=== PATIENT | female | born 1970 | race African-American/Black ===

== ENCOUNTER 2016-06-27 11:56 | Emergency (ER) | payer OTHER ==
--- NOTE | 2016-06-27 13:32 | ER Document Report ---
ED Medical Screen (RME) - General Chief Complaint: Vaginal Bleeding Stated Complaint: ABDOMINAL PAIN Mode of Arrival: Ambulatory Information source: Patient Notes: Patient is complaining of vaginal bleeding with clots that constant, every day since prior to . She endorses abdominal cramping to her lower abdomen, constant but today it became severe and shooting. Prior to this, she had normal menstrual cycles monthly for approximately 3 days. Endorses nausea, lightheadedness but denies fever, chills, dizziness, vomiting, diarrhea, vaginal discharge. This has happened to her before that required emergency surgery due to hemorrhage - she believes it was a D&C - this occurred 15 years ago. TRAVEL OUTSIDE OF THE [place] IN LAST 30 DAYS: No - Related Data Allergies/Adverse Reactions: doxycycline [Doxycycline] Allergy (Verified 07/27/15 14:01) erythromycin base [Erythromycin Base] Allergy (Verified 07/27/15 14:01) Past Medical History - General Last Menstrual Period: last normal period, persistant bleeeiing since - Social History Frequency of alcohol use: Social Drug Abuse: None - Past Medical History Cardiac Medical History: Reports: Hx Hypertension GI Medical History: Reports: Hx Gastroesophageal Reflux Disease, Hx Ulcer Past Surgical History: Reports: Hx Dilation and Curettage, Hx Gynecologic Surgery - Immunizations Hx Diphtheria, Pertussis, Tetanus Vaccination: Yes Review of Systems - Review of Systems Constitutional: See HPI Gastrointestinal: See HPI Female Genitourinary: See HPI Physical Exam - Vital signs Vitals: Temp Pulse Resp BP Pulse Ox 98.1 F 69 18 138/83 H 100 06/27/16 12:14 06/27/16 12:14 06/27/16 12:14 06/27/16 12:14 06/27/16 12:14 - Notes Notes: General: Appears uncomfortable, no respiratory distress. ENT: Moist mucus membranes, no pallor noted. Course - Re-evaluation Re-evalutation: 06/27/16 13:32 Patient seen and examined. No pallor noted. VSS. Ordered lab work and urinalysis. - Vital Signs Vital signs: Temp Pulse Resp BP Pulse Ox 98.1 F 69 18 138/83 H 100 06/27/16 12:14 06/27/16 12:14 06/27/16 12:14 06/27/16 12:14 06/27/16 12:14
[2016-06-27 14:44] LABS: ABSOLUTE EOSINOPHILS # (AUTO) 0.2 10^3/uL (0.0-0.6); ABSOLUTE LYMPHOCYTES (AUTO) 2.8 10^3/uL (0.5-4.7); ABSOLUTE MONOCYTES (AUTO) 0.5 10^3/uL (0.1-1.4); BASOPHILS % (AUTO) 0.5 % (0-2); EOSINOPHILS % (AUTO) 2.7 % (0-6); HEMOGLOBIN 13.6 g/dL (12.0-15.5); HGB HCT DIFFERENCE 0.8; LYMPHOCYTES % (AUTO) 42.7 % (13-45); MEAN CORPUSCULAR HEMOGLOBIN 29.3 pg (27.0-33.4); MEAN CORPUSCULAR HGB CONC 33.9 g/dL (32.0-36.0); MEAN CORPUSCULAR VOLUME 86 fl (80-97); MONOCYTES % (AUTO) 7.3 % (3-13); RED BLOOD COUNT 4.64 10^6/uL (3.72-5.28); RED CELL DISTRIBUTION WIDTH 14.4 % (11.5-14.0); SEGMENTED NEUTROPHILS % (AUTO) 46.8 % (42-78); WHITE BLOOD COUNT 6.5 10^3/uL (4.0-10.5)
[2016-06-27 15:00] LABS: ANION GAP 12 (5-19); BLOOD UREA NITROGEN 17 mg/dL (7-20); CALCIUM 9.5 mg/dL (8.4-10.2); CARBON DIOXIDE 24 mmol/L (22-30); CHLORIDE 106 mmol/L (98-107); GLUCOSE 89 mg/dL (75-110); POTASSIUM 5.1 mmol/L (3.6-5.0); SODIUM 141.6 mmol/L (137-145)
[2016-06-27 15:12] LABS: APPEARANCE,URINE CLEAR; BILIRUBIN,URINE NEGATIVE (NEGATIVE); GLUCOSE, URINE NEGATIVE (NEGATIVE); KETONES,URINE NEGATIVE (NEGATIVE); LEUKOCYTE ESTERASE,URINE NEGATIVE (NEGATIVE); NITRITE,URINE NEGATIVE (NEGATIVE); PROTEIN,URINE NEGATIVE (NEGATIVE); URINE SPECIFIC GRAVITY 1.028; UROBILINOGEN,URINE NEGATIVE mg/dL (<2.0)
--- NOTE | 2016-06-27 17:21 | ER Document Report ---
ED GI/ - General Chief Complaint: Vaginal Bleeding Stated Complaint: ABDOMINAL PAIN Mode of Arrival: Ambulatory Information source: Patient Notes: 45 y/o F presents to ED c/o persistent vaginal bleeding and pelvic cramping for approximately the last month. Pt reports LMP was around 05/20/16 and has not stopped bleeding since. States intensity of bleeding varies but is usually slightly less than normal menstrual flow. Reports associated intermittent mid pelvic cramping that radiates bilaterally. was seen in this ED on 06/17 and given prescription for provera but did not fill it and has not followed up with [facility]. Denies fever, vaginal discharge, n/v, dysuria, flank pain, chest pain, or sob. TRAVEL OUTSIDE OF THE [place] 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 Menstrual period history: Irregular Sexual history: denies: New partner, Unprotected intercourse, STD exposure Similar symptoms previously: Yes Recently seen / treated by doctor: Yes - Related Data Allergies/Adverse Reactions: doxycycline [Doxycycline] Allergy (Verified 07/27/15 14:01) erythromycin base [Erythromycin Base] Allergy (Verified 07/27/15 14:01) Past Medical History - General Information source: Patient Last Menstrual Period: thanksgiving last normal period, persistant bleeeiing since - Social History Smoking Status: Never Smoker Frequency of alcohol use: Social Drug Abuse: None Lives with: Family Family History: Reviewed & Not Pertinent Patient has suicidal ideation: No Patient has homicidal ideation: No - Past Medical History Cardiac Medical History: Reports: Hx Hypertension GI Medical History: Reports: Hx Gastroesophageal Reflux Disease, Hx Ulcer Past Surgical History: Reports: Hx Dilation and Curettage, Hx Gynecologic Surgery - Immunizations Hx Diphtheria, Pertussis, Tetanus Vaccination: Yes Hx Pneumococcal Vaccination: 06/26/00 Review of Systems - Review of Systems Constitutional: No symptoms reported EENT: No symptoms reported Cardiovascular: No symptoms reported Respiratory: No symptoms reported Gastrointestinal: No symptoms reported Genitourinary: No symptoms reported Female Genitourinary: See HPI Musculoskeletal: No symptoms reported Skin: No symptoms reported Hematologic/Lymphatic: No symptoms reported Neurological/Psychological: No symptoms reported -: Yes All other systems reviewed and negative Physical Exam - Vital signs Vitals: Temp Pulse Resp BP Pulse Ox 98.1 F 69 18 138/83 H 100 06/27/16 12:14 06/27/16 12:14 06/27/16 12:14 06/27/16 12:14 06/27/16 12:14 Interpretation: Normal - General General appearance: Appears well, Alert In distress: None - HEENT Head: Normocephalic, Atraumatic Eyes: Normal Pupils: PERRL - Respiratory Respiratory status: No respiratory distress Chest status: Nontender Breath sounds: Normal Chest palpation: Normal - Cardiovascular Rhythm: Regular Heart sounds: Normal auscultation Murmur: No Pulses: Normal: Radial Normal capillary refill: Yes - Abdominal Inspection: Normal Distension: No distension Bowel sounds: Normal Tenderness: Nontender. No: Tender, McBurney's point, Corrales's sign, Guarding, Rebound, Other Organomegaly: No organomegaly - Genitourinary Notes: pt declined pelvic exam - Back Back: Normal, Nontender - Extremities General upper extremity: Normal inspection, Nontender, Normal color, Normal ROM , Normal strength, Normal temperature. No: Tender, Edema General lower extremity: Normal inspection, Nontender, Normal color, Normal ROM , Normal strength, Normal temperature, Normal weight bearing. No: Tender, Edema - Neurological Neuro grossly intact: Yes Cognition: Normal Orientation: AAOx4 [place] Coma Scale Eye Opening: Spontaneous [place] Coma Scale Verbal: Oriented O[place] Coma Scale Motor: Obeys Commands [place] Coma Scale Total: 15 Speech: Normal Motor strength normal: LUE, RUE, LLE, RLE - Psychological Associated symptoms: Normal affect, Normal mood - Skin Skin Temperature: Warm Skin Moisture: Dry Skin Color: Normal Course - Re-evaluation Re-evalutation: 06/27/16 18:00 Pt hemodynamically stable, in no distress, afebrile. Labs unremarkable, left ovarian cyst, and nabothian cysts on ultrasound. Will re-write for previous Provera prescription as patient states misplaced original one from previous ED visit. Pt appears stable for discharge agrees with home care, follow-up, and ED return precautions. - Vital Signs Vital signs: Temp Pulse Resp BP Pulse Ox 98.4 F 65 18 125/82 98 06/27/16 17:41 06/27/16 17:41 06/27/16 12:14 06/27/16 17:41 06/27/16 17:41 - Laboratory Result Diagrams: 06/27/16 14:30 06/27/16 14:30 Laboratory results interpreted by me: 06/27/16 06/27/16 06/27/16 14:30 14:30 14:30 RDW 14.4 H Potassium 5.1 H Est GFR (Non-Af Amer) 59 L Urine Ascorbic Acid 40 H - Diagnostic Test Radiology reviewed: Image reviewed, Reports reviewed Discharge - Discharge Clinical Impression: Pelvic pain, Vaginal bleeding Ovarian cyst Qualifiers: Laterality: right Qualified Code(s): N83.201 - Unspecified ovarian cyst, right side Condition: Stable Disposition: HOME, SELF-CARE Instructions: Anti-Inflammatory Medication ([facility]), Oral Narcotic Medication ([facility] ), Ovarian Cyst ([facility]), Pelvic Pain ([facility]), Provera ([facility]), Vaginal Bleeding ([facility]) , Use of Sjms-Ocl-Uizhlas Ibuprofen ([facility]) Additional Instructions: Follow-up with [facility] tomorrow as discussed. Return to the Emergency Department for any worsening symptoms or concerns. Prescriptions: Hydrocodone/Acetaminophen [[place] 5-325 mg Tablet] 1 tab PO Q6H PRN #8 tablet PRN Reason: Medroxyprogesterone Acet [Provera 10 mg Tablet] 10 mg PO DAILY #7 tablet Forms: Elevated Blood Pressure Referrals: [facility] [Provider Group] - Follow up tomorrow
[2016-06-27 18:02] VITALS: BP 125/82
== END 2016-06-27 18:02 | disposition home or self-care (01) ==
LOC: ER 11:56
DX: N83.201 Unspecified ovarian cyst, right side (principal); N93.8 Other specified abnormal uterine and vaginal bleeding; R10.2 Pelvic and perineal pain; I10 Essential (primary) hypertension; K21.9 Gastro-esophageal reflux disease without esophagitis; Z88.3 Allergy status to other anti-infective agents
CPT/HCPCS: 36415; 51701; 76830; 80048; 81001; 81025; 85025; 85610; 93976; 99284

== ENCOUNTER 2017-03-14 13:54 | Emergency (ER) | payer SELFPAY ==
[2017-03-14 14:16] VITALS: BP 134/81
--- NOTE | 2017-03-14 15:22 | ER Document Report ---
HPI - HPI Patient complains to provider of: low back pain Onset: Other Onset/Duration: Sudden Quality of pain: Achy Severity: Moderate Pain Level: 4 Context: Patient states she stepped out of her car and did not realize she was on a small hill, stepped on an unlevel surface injuring her lower back. Patient states pain radiates to her left thigh. Patient denies history of lower back problems, and denies loss of control of bowels or bladder. Associated Symptoms: None Exacerbated by: Movement Relieved by: Remaining still Similar symptoms previously: No Recently seen / treated by doctor: No - ROS ROS below otherwise negative: Yes Systems Reviewed and Negative: Yes All other systems reviewed and negative - CONSTITUTIONAL Constitutional: DENIES: Fever - EENT EENT: DENIES: Congestion - NEURO Neurology: DENIES: Headache - CARDIOVASCULAR Cardiovascular: DENIES: Chest pain - RESPIRATORY Respiratory: DENIES: Trouble Breathing - GASTROINTESTINAL Gastrointestinal: DENIES: Abdominal Pain - REPRODUCTIVE Reproductive: DENIES: : - MUSCULOSKELETAL Musculoskeletal: REPORTS: Back Pain - DERM Skin Color: Normal Skin Problems: None Past Medical History - General Information source: Patient - Social History Smoking Status: Never Smoker Frequency of alcohol use: Occasional Drug Abuse: None Lives with: Family Family History: Reviewed & Not Pertinent Patient has suicidal ideation: No Patient has homicidal ideation: No - Past Medical History Cardiac Medical History: Reports: Hx Hypertension GI Medical History: Reports: Hx Gastroesophageal Reflux Disease, Hx Ulcer Past Surgical History: Reports: Hx Dilation and Curettage, Hx Gynecologic Surgery - Immunizations Hx Diphtheria, Pertussis, Tetanus Vaccination: Yes Hx Pneumococcal Vaccination: 06/26/00 Vertical Provider Document - CONSTITUTIONAL Agree With Documented VS: Yes General Appearance: WD/WN, No Apparent Distress - INFECTION CONTROL TRAVEL OUTSIDE OF THE [place] IN LAST 30 DAYS: No - HEENT HEENT: Atraumatic, Normocephalic - RESPIRATORY Respiratory: Breath Sounds Normal, No Respiratory Distress O2 Sat by Pulse Oximetry: 98 - CARDIOVASCULAR Cardiovascular: Regular Rate, Regular Rhythm - GI/ABDOMEN Gastrointestinal: Abdomen Soft, Abdomen Non-Tender - BACK Notes: Minimal tenderness to L-spine, increased tenderness to left paraspinal lumbar muscles and over left buttock. No pain with right leg raise, discomfort produced with left straight leg raise. No saddle anesthesia. - MUSCULOSKELETAL/EXTREMETIES Musculoskeletal/Extremeties: MAEW - NEURO Level of Consciousness: Awake, Alert, Appropriate - DERM Integumentary: Warm, Dry, No Rash Course - Vital Signs Vital signs: Temp Pulse Resp BP Pulse Ox 98.3 F 71 16 134/81 H 98 03/14/17 14:12 03/14/17 14:12 03/14/17 14:12 03/14/17 14:12 03/14/17 14:12 Discharge - Discharge Clinical Impression: Low back pain with left-sided sciatica Qualifiers: Chronicity: acute Back pain laterality: left Qualified Code(s): M54.42 - Lumbago with sciatica, left side Condition: Good Disposition: HOME, SELF-CARE Instructions: Ice Packs ([facility]), Low Back Pain ([facility]), Warm Packs ([facility]) Additional Instructions: Take medications as prescribed Heat or ice packs to your back 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 Follow-up with your doctor if not better in 1 week Return if symptoms worsen, and as needed Prescriptions: Cyclobenzaprine HCl [Flexeril 10 mg Tablet] 10 mg PO TIDP PRN #15 tab PRN Reason: Ibuprofen 800 mg PO PRN PRN #15 tablet PRN Reason: Prednisone [Deltasone 10 mg Tablet] 10 mg PO ASDIR PRN #21 tablet PRN Reason: Forms: Return to Work
== END 2017-03-14 15:32 | disposition home or self-care (01) ==
LOC: ER 13:54
DX: M54.42 Lumbago with sciatica, left side (principal); K21.9 Gastro-esophageal reflux disease without esophagitis; I10 Essential (primary) hypertension
CPT/HCPCS: 99283

== ENCOUNTER 2018-01-03 13:59 | Emergency (ER) | payer OTHER ==
[2018-01-03] MEDS ORDERED: NAPROXEN 250 MG TABLET PO ONE (14:42)
[2018-01-03] MEDS ORDERED: HYDROCODONE/ACETAMINOPHEN 5-325 MG TABLET PO ONE (14:42)
--- NOTE | 2018-01-03 14:47 | ER Document Report ---
ED Medical Screen (RME) - General Chief Complaint: Abdominal Pain Stated Complaint: SICK Time Seen by Provider: 01/03/18 14:35 Notes: The patient is a 47-year-old female, past medical history TURP, presents with increasing vaginal bleeding over the past day and lightheadedness. 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 She went to [facility] urgent [facility] and was sent to the ER for further evaluation. She said Provera resolve this in the past. PE: RRR. Tenderness over suprapubic region. I have greeted and performed a rapid initial assessment of this patient. A comprehensive ED assessment and evaluation of the patient, analysis of test results and completion of the medical decision making process will be conducted by additional ED providers. TRAVEL OUTSIDE OF THE [place] IN LAST 30 DAYS: No - Related Data Allergies/Adverse Reactions: doxycycline [Doxycycline] Allergy (Verified 01/03/18 14:35) erythromycin base [Erythromycin Base] Allergy (Verified 01/03/18 14:35) Past Medical History - Social History Chew tobacco use (# tins/day): No Frequency of alcohol use: Rare Drug Abuse: None - Past Medical History Cardiac Medical History: Reports: Hx Hypertension Renal/ Medical History: Denies: Hx Peritoneal Dialysis GI Medical History: Reports: Hx Gastroesophageal Reflux Disease, Hx Ulcer Past Surgical History: Reports: Hx Dilation and Curettage, Hx Gynecologic Surgery - Immunizations Hx Diphtheria, Pertussis, Tetanus Vaccination: Yes Physical Exam - Vital signs Vitals: Temp Pulse Resp BP Pulse Ox 97.9 F 69 20 128/76 H 98 01/03/18 14:10 01/03/18 14:10 01/03/18 14:10 01/03/18 14:10 01/03/18 14:10 Course - Vital Signs Vital signs: Temp Pulse Resp BP Pulse Ox 97.9 F 69 20 128/76 H 98 01/03/18 14:10 01/03/18 14:10 01/03/18 14:10 01/03/18 14:10 01/03/18 14:10
[2018-01-03 15:27] LABS: ABSOLUTE EOSINOPHILS # (AUTO) 0.2 10^3/uL (0.0-0.6); ABSOLUTE MONOCYTES (AUTO) 0.5 10^3/uL (0.1-1.4); ABSOLUTE NEUT (AUTO) 4.5 10^3/uL (1.7-8.2); BASOPHILS % (AUTO) 0.4 % (0-2); EOSINOPHILS % (AUTO) 2.1 % (0-6); HEMOGLOBIN 14.4 g/dL (12.0-15.5); LYMPHOCYTES % (AUTO) 36.6 % (13-45); MEAN CORPUSCULAR HEMOGLOBIN 28.9 pg (27.0-33.4); MEAN CORPUSCULAR HGB CONC 33.4 g/dL (32.0-36.0); MEAN CORPUSCULAR VOLUME 87 fl (80-97); PLATELET COUNT 353 10^3/uL (150-450); RED BLOOD COUNT 4.96 10^6/uL (3.72-5.28); RED CELL DISTRIBUTION WIDTH 14.6 % (11.5-14.0); SEGMENTED NEUTROPHILS % (AUTO) 54.9 % (42-78); TOTAL CELLS COUNTED % (AUTO) 100 %; WHITE BLOOD COUNT 8.2 10^3/uL (4.0-10.5)
[2018-01-03 15:29] LABS: APPEARANCE,URINE CLEAR; BILIRUBIN,URINE NEGATIVE (NEGATIVE); COLOR,URINE YELLOW; GLUCOSE, URINE NEGATIVE (NEGATIVE); KETONES,URINE NEGATIVE (NEGATIVE); LEUKOCYTE ESTERASE,URINE NEGATIVE (NEGATIVE); NITRITE,URINE NEGATIVE (NEGATIVE); PROTEIN,URINE NEGATIVE (NEGATIVE); URINE SPECIFIC GRAVITY 1.019
[2018-01-03] MEDS ORDERED: MORPHINE SULFATE 10 MG/ML INJ IV ONE (15:54)
--- NOTE | 2018-01-03 15:55 | ER Document Report ---
ED GI/ - General Chief Complaint: Abdominal Pain Stated Complaint: SICK Time Seen by Provider: 01/03/18 14:35 Mode of Arrival: Ambulatory Information source: Patient Notes: Patient is a 47-year-old female still with all female organs who presents to the ER today for very heavy menstrual cycle. Patient states it began 4 days ago and that her menstrual cycles usually only last 3 days, she states that has been very heavy and worsened last night with the passage of one large clot and some pelvic pain that is "much worse than I have ever had before." Patient has a history of an ovarian cyst once before. Patient was sent here by [facility] urgent care. She denies any dizziness or lightheadedness. She denies that her abdominal pain is worse on one side or the other, she denies any dysuria, vaginal discharge, fevers or chills. TRAVEL OUTSIDE OF THE [place] IN LAST 30 DAYS: No - Related Data Allergies/Adverse Reactions: doxycycline [Doxycycline] Allergy (Verified 01/03/18 14:35) erythromycin base [Erythromycin Base] Allergy (Verified 01/03/18 14:35) Past Medical History - General Information source: Patient - Social History Smoking Status: Never Smoker Chew tobacco use (# tins/day): No Frequency of alcohol use: Rare Drug Abuse: None Family History: Reviewed & Not Pertinent Patient has suicidal ideation: No Patient has homicidal ideation: No - Past Medical History Cardiac Medical History: Reports: Hx Hypertension Renal/ Medical History: Denies: Hx Peritoneal Dialysis GI Medical History: Reports: Hx Gastroesophageal Reflux Disease, Hx Ulcer Past Surgical History: Reports: Hx Dilation and Curettage, Hx Gynecologic Surgery - Immunizations Hx Diphtheria, Pertussis, Tetanus Vaccination: Yes Hx Pneumococcal Vaccination: 06/26/00 Review of Systems - Review of Systems Constitutional: No symptoms reported EENT: No symptoms reported Cardiovascular: No symptoms reported Respiratory: No symptoms reported Gastrointestinal: No symptoms reported Genitourinary: No symptoms reported Female Genitourinary: See HPI Musculoskeletal: No symptoms reported Skin: No symptoms reported Hematologic/Lymphatic: No symptoms reported Neurological/Psychological: No symptoms reported Physical Exam - Vital signs Vitals: Temp Pulse Resp BP Pulse Ox 97.9 F 69 20 128/76 H 98 01/03/18 14:10 01/03/18 14:10 01/03/18 14:10 01/03/18 14:10 01/03/18 14:10 - Notes Notes: PHYSICAL EXAMINATION: GENERAL: Well-appearing and in no acute distress. HEAD: Atraumatic, normocephalic. EYES: Pupils equal round and reactive to light, extraocular movements intact, sclera anicteric, conjunctiva are normal. NECK: Normal range of motion, supple without lymphadenopathy LUNGS: CTAB and equal. No wheezes rales or rhonchi. HEART: Regular rate and rhythm without murmurs ABDOMEN: Soft, suprapubic tenderness. No guarding, no rebound BACK: no vertebral tenderness, normal ROM Pelvic: Small amount of bright red blood in vaginal canal, no clots, normal tenderness to exam, no discharge, no adnexal tenderness, no cervical motion tenderness GI/: no CVA tenderness EXTREMITIES: Normal range of motion, no pitting edema. No cyanosis. NEUROLOGICAL: Cranial nerves grossly intact. Normal sensory/motor exams. PSYCH: Normal mood, normal affect. SKIN: Warm, Dry, normal turgor, no rashes or lesions noted Course - Re-evaluation Re-evalutation: 01/03/18 16:10 negative here today, ultrasound of the pelvis reveals no acute pathology, no cyst, evidence of fibroids or endometriosis, other abnormality. Patient's hemoglobin is normal today. Patient is not symptomatic from heavy bleeding. Patient states bleeding has "calmed down quite a bit" since being here in the emergency department. Pelvic exam was unremarkable without signs of uncontrollable hemorrhage. Patient stable for discharge. 01/04/18 08:11 - Vital Signs Vital signs: Temp Pulse Resp BP Pulse Ox 98.2 F 68 18 139/88 H 97 01/03/18 19:22 01/03/18 19:22 01/03/18 19:22 01/03/18 19:22 01/03/18 19:22 - Laboratory Result Diagrams: 01/03/18 15:14 Laboratory results interpreted by me: 01/03/18 01/03/18 15:14 15:14 RDW 14.6 H Urine Blood LARGE H Urine Urobilinogen 4.0 H Urine Ascorbic Acid 40 H Discharge - Discharge Clinical Impression: Vaginal bleeding, abnormal, Pelvic pain Condition: Stable Disposition: HOME, SELF-CARE Instructions: Vaginal Bleeding ([facility]) Additional Instructions: Return immediately for any new or worsening symptoms. Follow up with [facility], call tomorrow to make followup appointment. Prescriptions: Naproxen 500 mg PO BID PRN #30 tablet PRN Reason: Forms: Parent Work Note, Return to Work Referrals: [facility] [Provider Group] - Follow up as needed
--- NOTE | 2018-01-03 18:41 | RADIOLOGY REPORT (SQ) ---
EXAM DESCRIPTION: U/S NON-OB PELVIS W/O DOP COMPLETED DATE/TIME: 01/03/2018 6:32 pm REASON FOR STUDY: lower abd pain, heavy menstrual COMPARISON: June 2016 TECHNIQUE: Dynamic and static grayscale images acquired of the pelvis via transabdominal approach an d recorded on PACS. Additional selected color Doppler and spectral images recorded. LIMITATIONS: Study is limited due to the patient's body habitus. FINDINGS: UTERUS: Contour normal. No mass. ENDOMETRIAL STRIPE: No focal or generalized thickening. No masses. CERVIX: No nabothian cysts. RIGHT OVARY AND DOPPLER: Normal size. No worrisome masses. Normal arterial vascular flow without evid ence for torsion. LEFT OVARY AND DOPPLER: Normal size. No worrisome masses. Normal arterial vascular flow without evide nce for torsion. FREE FLUID: None noted. OTHER: No other significant finding. MEASUREMENTS: UTERUS: 6.5 x 3.4 x 3.7 cm ENDOMETRIAL STRIPE: 3 mm RIGHT OVARY: 2.8 x 1.7 x 1.7 cm LEFT OVARY: 2.2 x 1.9 x 1.5 cm IMPRESSION: Somewhat limited study as noted above. No significant pelvic abnormalities were identif ied. TECHNICAL DOCUMENTATION: JOB ID: [id number] [employer]- All Rights Reserved Rev-11/10 Reading location - IP/workstation name: [email or web address]
[2018-01-03 19:26] VITALS: BP 139/88
== END 2018-01-03 19:43 | disposition home or self-care (01) ==
LOC: ER 13:59
DX: R10.9 Unspecified abdominal pain (principal); R10.2 Pelvic and perineal pain; N93.8 Other specified abnormal uterine and vaginal bleeding; I10 Essential (primary) hypertension; Z88.3 Allergy status to other anti-infective agents
CPT/HCPCS: 36415; 76856; 81001; 81025; 85025; 99284

== ENCOUNTER 2019-05-05 14:21 | Emergency (ER) | payer OTHER ==
[2019-05-05] MEDS ORDERED: MAG HYDROX/AL HYDROX/SIMETH SUSP 30 ML UDCUP PO ONE (14:43)
[2019-05-05] MEDS ORDERED: LIDOCAINE 2% VISCOUS SOLN 20 ML UDCUP PO ONE (14:43)
--- NOTE | 2019-05-05 14:44 | ER Document Report ---
ED Medical Screen (RME) - General Chief Complaint: Epigastric Pain Stated Complaint: POSSIBLE HEARTBURN Time Seen by Provider: 05/05/19 14:40 Mode of Arrival: Ambulatory Information source: Patient Notes: Patient presents complaining of reflux symptoms for the past month. Patient states that she has been taking Prilosec [id number] but her symptoms have not been improving. Patient does report a history of gastric ulcers well. Patient denies any chest pain. I have greeted and performed a rapid initial assessment of this patient. A comprehensive ED assessment and evaluation of the patient, analysis of test results and completion of the medical decision making process will be conducted by additional ED providers. TRAVEL OUTSIDE OF THE [place] IN LAST 30 DAYS: No - Related Data Allergies/Adverse Reactions: doxycycline [Doxycycline] Allergy (Verified 05/05/19 14:37) erythromycin base [Erythromycin Base] Allergy (Verified 05/05/19 14:37) Past Medical History - Social History Chew tobacco use (# tins/day): No Frequency of alcohol use: Occasional Drug Abuse: None - Past Medical History Cardiac Medical History: Reports: Hx Hypertension Renal/ Medical History: Denies: Hx Peritoneal Dialysis GI Medical History: Reports: Hx Gastroesophageal Reflux Disease, Hx Ulcer Past Surgical History: Reports: Hx Dilation and Curettage, Hx Gynecologic Surgery - Immunizations Hx Diphtheria, Pertussis, Tetanus Vaccination: Yes Physical Exam - Vital signs Vitals: Temp Pulse Resp BP Pulse Ox 98.8 F 78 16 151/90 H 99 05/05/19 14:32 05/05/19 14:32 05/05/19 14:32 05/05/19 14:32 05/05/19 14:32 - Abdominal Tenderness: Tender - Epigastric Course - Vital Signs Vital signs: Temp Pulse Resp BP Pulse Ox 98.8 F 78 16 151/90 H 99 05/05/19 14:32 05/05/19 14:32 05/05/19 14:32 05/05/19 14:32 05/05/19 14:32
[2019-05-05 15:28] LABS: ABSOLUTE EOSINOPHILS # (AUTO) 0.1 10^3/uL (0.0-0.6); ABSOLUTE LYMPHOCYTES (AUTO) 2.6 10^3/uL (0.5-4.7); ABSOLUTE MONOCYTES (AUTO) 0.5 10^3/uL (0.1-1.4); ABSOLUTE NEUT (AUTO) 4.9 10^3/uL (1.7-8.2); BASOPHILS % (AUTO) 0.6 % (0-2); EOSINOPHILS % (AUTO) 1.4 % (0-6); HEMOGLOBIN 14.2 g/dL (12.0-15.5); LYMPHOCYTES % (AUTO) 32.4 % (13-45); MEAN CORPUSCULAR HEMOGLOBIN 28.8 pg (27.0-33.4); MEAN CORPUSCULAR VOLUME 87 fl (80-97); PLATELET COUNT 356 10^3/uL (150-450); RED BLOOD COUNT 4.92 10^6/uL (3.72-5.28); RED CELL DISTRIBUTION WIDTH 14.5 % (11.5-14.0); SEGMENTED NEUTROPHILS % (AUTO) 59.6 % (42-78); TOTAL CELLS COUNTED % (AUTO) 100 %; WHITE BLOOD COUNT 8.2 10^3/uL (4.0-10.5)
[2019-05-05 15:45] LABS: ALBUMIN 3.9 g/dL (3.5-5.0); ALKALINE PHOSPHATASE 123 U/L (38-126); ANION GAP 12 (5-19); ASPARTATE AMINO TRANSFERASE 16 U/L (14-36); BILIRUBIN,DIRECT 0.1 mg/dL (0.0-0.4); BILIRUBIN,TOTAL 0.3 mg/dL (0.2-1.3); BLOOD UREA NITROGEN 11 mg/dL (7-20); CALCIUM 9.6 mg/dL (8.4-10.2); CARBON DIOXIDE 23 mmol/L (22-30); CHLORIDE 106 mmol/L (98-107); GLUCOSE 158 mg/dL (75-110); POTASSIUM 4.4 mmol/L (3.6-5.0); TOTAL PROTEIN 7.6 g/dL (6.3-8.2)
[2019-05-05 19:27] VITALS: BP 138/91
--- NOTE | 2019-05-05 23:21 | EKG REPORT ---
SEVERITY:- ABNORMAL ECG - SINUS RHYTHM ABNORMAL T, CONSIDER ISCHEMIA, DIFFUSE LEADS : Confirmed by: Mayela Clark 05-May-2019 23:20:59
--- NOTE | 2019-05-07 13:30 | ER Document Report ---
Entered by JEAN DAVIS SCRIBE 05/05/19 1714 Acting as scribe for:YOLANDA HANSON MD ED GI/ - General Chief Complaint: Epigastric Pain Stated Complaint: POSSIBLE HEARTBURN Time Seen by Provider: 05/05/19 14:40 Primary Care Provider: [facility] [NO LOCAL MD] - Follow up as needed Mode of Arrival: Ambulatory Information source: Patient Notes: 48-year-old female with a history of GERD that presents to the emergency department today with complaints of acid reflux with associated epigastric pain. Patient states she has not had any chest pain or black stools. Patient states she had been taking omeprazole which did work for quite some time but she stopped taking it because it "stopped working". Patient denies chest pain. TRAVEL OUTSIDE OF THE [place] IN LAST 30 DAYS: No - Related Data Allergies/Adverse Reactions: doxycycline [Doxycycline] Allergy (Verified 05/05/19 14:37) erythromycin base [Erythromycin Base] Allergy (Verified 05/05/19 14:37) Past Medical History - General Information source: Patient - Social History Smoking Status: Never Smoker Cigarette use (# per day): No Chew tobacco use (# tins/day): No Frequency of alcohol use: Occasional Drug Abuse: None Lives with: Family Family History: Reviewed & Not Pertinent Patient has suicidal ideation: No Patient has homicidal ideation: No - Past Medical History Cardiac Medical History: Reports: Hx Hypertension GI Medical History: Reports: Hx Gastroesophageal Reflux Disease, Hx Ulcer Past Surgical History: Reports: Hx Dilation and Curettage, Hx Gynecologic Surgery - Immunizations Hx Diphtheria, Pertussis, Tetanus Vaccination: Yes Hx Pneumococcal Vaccination: 06/26/00 Review of Systems - Review of Systems Constitutional: No symptoms reported EENT: No symptoms reported Cardiovascular: denies: Chest pain Respiratory: No symptoms reported Gastrointestinal: See HPI, Abdominal pain, Other - GERD. denies: Black stools Genitourinary: No symptoms reported Female Genitourinary: No symptoms reported Musculoskeletal: No symptoms reported Skin: No symptoms reported Hematologic/Lymphatic: No symptoms reported Neurological/Psychological: No symptoms reported -: Yes All other systems reviewed and negative Physical Exam - Vital signs Vitals: Temp Pulse Resp BP Pulse Ox 98.8 F 78 16 151/90 H 99 05/05/19 14:32 05/05/19 14:32 05/05/19 14:32 05/05/19 14:32 05/05/19 14:32 - Notes Notes: Physical Exam: General: Alert, appears well. Talking on cell phone upon entry. HEENT: Normocephalic. Atraumatic. PERRL. Extraocular movements intact. Oropharynx clear. Neck: Supple. Non-tender. Respiratory: No respiratory distress. Clear and equal breath sounds bilaterally. Cardiovascular: Regular rate and rhythm. Abdominal: Upper abdominal tenderness with palpation over the epigastrium. No distension. Normal Bowel Sounds. Back: No gross abnormalities. Extremities: Moves all four extremities. Upper extremities: Normal inspection. Normal ROM. Lower extremities: Normal inspection. No edema. Normal ROM. Neurological: Normal cognition. AAOx4. Normal speech. Psychological: Normal affect. Normal Mood. Skin: Warm. Dry. Normal color. Course - Re-evaluation Re-evalutation: 05/05/19 19:15 All patient's labs within normal limits are nonsignificant. Patient has been having sour taste in her throat with a history of gastritis. She is not on any medication at this time. Will place patient on Zantac and she is advised to eat a low fat diet. Return precautions provided 05/05/19 19:19 Of note, her symptoms been going on for several weeks and has happened multiple times in the past over multiple years. She does not have any history of heart attack or stroke and her EKG shows no significant changes from 2011 although she does have some diffuse T wave inversions but have also been present since 2010. I discussed with the patient. She is a low risk heart score. She is instructed if the symptoms are not improving the next 2-3 days to return to the emergency department for further reevaluation. Her discomfort and burning is in her epigastric region and bianca etimes in her lower abdominal region as well. - Vital Signs Vital signs: Temp Pulse Resp BP Pulse Ox 98.4 F 73 17 138/91 H 99 05/05/19 19:25 05/05/19 19:25 05/05/19 19:25 05/05/19 19:25 05/05/19 19:25 - Laboratory Result Diagrams: 05/05/19 15:13 05/05/19 15:13 Laboratory results interpreted by me: 05/05/19 05/05/19 15:13 15:13 RDW 14.5 H Est GFR (MDRD) Non-Af 50 L Glucose 158 H Lipase 386.2 H - EKG Interpretation by Me Additional EKG results interpreted by me: 05/05/19 19:21 Time 1501 Rate of 72, normal sinus rhythm, ST depressions in 2 3 aVF V2 through V6, Discharge - Discharge Clinical Impression: Epigastric discomfort Condition: Good Disposition: HOME, SELF-CARE Instructions: Evaluation of Upper Abdominal Pain ([facility]) Additional Instructions: If your symptoms are not improving with the medication provided please return within the next 2 to 3 days for medical reevaluation. Prescriptions: Ranitidine HCl [Zantac] 150 mg PO BID #30 tablet Referrals: [facility] [NO LOCAL MD] - Follow up as needed I personally performed the services described in the documentation, reviewed and edited the documentation which was dictated to the scribe in my presence, and it accurately records my words and actions.
== END 2019-05-05 19:41 | disposition home or self-care (01) ==
LOC: ER 14:21
DX: K21.9 Gastro-esophageal reflux disease without esophagitis (principal); R10.13 Epigastric pain; R10.816 Epigastric abdominal tenderness; I10 Essential (primary) hypertension; Z88.1 Allergy status to other antibiotic agents; Z87.19 Personal history of other diseases of the digestive system
CPT/HCPCS: 93005; 99283; 36415; 83690; 85025; 80053; 84484; 93010; J3490

== ENCOUNTER 2019-06-01 16:15 | Emergency (ER) | payer OTHER ==
[2019-06-01] MEDS ORDERED: MAG HYDROX/AL HYDROX/SIMETH SUSP 30 ML UDCUP PO ONE (16:47)
[2019-06-01] MEDS ORDERED: LIDOCAINE 2% VISCOUS SOLN 20 ML UDCUP PO ONE (16:47)
[2019-06-01] MEDS ORDERED: METOCLOPRAMIDE HCL ORAL SOLN 10 MG/10 ML UDCUP PO ONE (16:47)
--- NOTE | 2019-06-01 16:49 | ER Document Report ---
ED Medical Screen (RME) - General Chief Complaint: Chest Pain Stated Complaint: CHEST PAIN Time Seen by Provider: 06/01/19 16:42 Notes: Patient is a 48-year-old female who presents emergency department with a chief complaint of chest pain. Patient reports around 8 AM this morning after eating a sausage cheese biscuit she did develop a pressure to the center of her chest that radiated into her back. Patient reports that this is continued throughout the day. Patient reports that at times it is sharp in nature. Patient denies a cardiac history. Patient reports over the past couple of months while she is on her menstrual cycle she does have acid reflux. Patient reports she did used to take medication for this that did work for her but she cannot remember the name of it. Patient not currently taking any acid reflux medications. Patient also reports bilateral hand tingling over the past 3 days. Patient reports worsening tingling to the left hand today since developing her symptoms. TRAVEL OUTSIDE OF THE [place] IN LAST 30 DAYS: No - Related Data Allergies/Adverse Reactions: doxycycline [Doxycycline] Allergy (Verified 05/05/19 14:37) erythromycin base [Erythromycin Base] Allergy (Verified 05/05/19 14:37) Past Medical History - Social History Chew tobacco use (# tins/day): No Frequency of alcohol use: None Drug Abuse: None - Past Medical History Cardiac Medical History: Reports: Hx Hypertension Renal/ Medical History: Denies: Hx Peritoneal Dialysis GI Medical History: Reports: Hx Gastroesophageal Reflux Disease, Hx Ulcer Past Surgical History: Reports: Hx Dilation and Curettage, Hx Gynecologic Surgery - Immunizations Hx Diphtheria, Pertussis, Tetanus Vaccination: Yes Physical Exam - Vital signs Vitals: Temp Pulse BP Pulse Ox 97.8 F 70 154/103 H 97 06/01/19 16:26 06/01/19 16:26 06/01/19 16:26 06/01/19 16:26 - Cardiovascular Rhythm: Regular Heart sounds: Normal auscultation, S1 appreciated, S2 appreciated Course - Re-evaluation Re-evalutation: 06/01/19 16:49 I have greeted and performed a rapid initial assessment of this patient. A comprehensive ED assessment and evaluation of the patient, analysis of test results and completion of the medical decision making process will be conducted by additional ED providers. - Vital Signs Vital signs: Temp Pulse Resp BP Pulse Ox 97.8 F 70 154/103 H 97 06/01/19 16:35 06/01/19 16:26 06/01/19 16:26 06/01/19 16:35
[2019-06-01 17:26] LABS: ABSOLUTE EOSINOPHILS # (AUTO) 0.2 10^3/uL (0.0-0.6); ABSOLUTE LYMPHOCYTES (AUTO) 2.9 10^3/uL (0.5-4.7); ABSOLUTE MONOCYTES (AUTO) 0.5 10^3/uL (0.1-1.4); ABSOLUTE NEUT (AUTO) 5.1 10^3/uL (1.7-8.2); BASOPHILS % (AUTO) 0.4 % (0-2); EOSINOPHILS % (AUTO) 2.5 % (0-6); HEMATOCRIT 43.3 % (36.0-47.0); HEMOGLOBIN 14.3 g/dL (12.0-15.5); LYMPHOCYTES % (AUTO) 33.7 % (13-45); MEAN CORPUSCULAR HEMOGLOBIN 28.7 pg (27.0-33.4); MEAN CORPUSCULAR HGB CONC 33.1 g/dL (32.0-36.0); MEAN CORPUSCULAR VOLUME 87 fl (80-97); MONOCYTES % (AUTO) 5.2 % (3-13); PLATELET COUNT 399 10^3/uL (150-450); RED BLOOD COUNT 4.98 10^6/uL (3.72-5.28); RED CELL DISTRIBUTION WIDTH 14.8 % (11.5-14.0); SEGMENTED NEUTROPHILS % (AUTO) 58.2 % (42-78); TOTAL CELLS COUNTED % (AUTO) 100 %; WHITE BLOOD COUNT 8.7 10^3/uL (4.0-10.5)
[2019-06-01 17:40] LABS: ALBUMIN 3.9 g/dL (3.5-5.0); ALKALINE PHOSPHATASE 123 U/L (38-126); ANION GAP 11 (5-19); ASPARTATE AMINO TRANSFERASE 14 U/L (14-36); BILIRUBIN,DIRECT 0.2 mg/dL (0.0-0.4); BILIRUBIN,TOTAL 0.3 mg/dL (0.2-1.3); BLOOD UREA NITROGEN 13 mg/dL (7-20); CALCIUM 9.6 mg/dL (8.4-10.2); CARBON DIOXIDE 23 mmol/L (22-30); CHLORIDE 105 mmol/L (98-107); GLUCOSE 122 mg/dL (75-110); POTASSIUM 3.9 mmol/L (3.6-5.0); TOTAL PROTEIN 7.5 g/dL (6.3-8.2)
--- NOTE | 2019-06-01 17:54 | RADIOLOGY REPORT (SQ) ---
EXAM DESCRIPTION: CHEST 2 VIEWS COMPLETED DATE/TIME: 06/01/2019 5:21 pm REASON FOR STUDY: chest pain COMPARISON: 12/28/2015 TECHNIQUE: Frontal and lateral radiographic views of the chest acquired. NUMBER OF VIEWS: Two view. LIMITATIONS: None. FINDINGS: LUNGS AND PLEURA: No pneumothorax. No consolidation or pleural effusion. MEDIASTINUM AND HILAR STRUCTURES: Stable. HEART AND VASCULAR STRUCTURES: Stable. BONES: No acute findings. HARDWARE: None in the chest. OTHER: No other significant finding. IMPRESSION: NO ACUTE FINDINGS. TECHNICAL DOCUMENTATION: JOB ID: [id number] 2010 [employer]- All Rights Reserved Reading location - IP/workstation name: [email or web address]
--- NOTE | 2019-06-01 18:17 | ER Document Report ---
ED General - General Chief Complaint: Chest Pain Stated Complaint: CHEST PAIN Time Seen by Provider: 06/01/19 16:42 TRAVEL OUTSIDE OF THE [place] IN LAST 30 DAYS: No - HPI Notes: 48-year-old female presenting with with a chief complaint of burning epigastric discomfort radiating to retrosternal area. Long-standing history of reflux. Patient not currently on any prescription medication. Indicates that she was seeing a GI doctor for this in the past but no longer has any of her prescription medication. Indicates that she is been worked up for cholelithiasis in the past with a negative ultrasound. She is uncertain what she was taking but thinks this may have been omeprazole. She was seen here last month for similar symptoms improved with a GI cocktail and had a negative cardiac work-up in the emergency department at that time. She was sent out with Zantac she took this only for a few days and has not continued to take the medication. Onset of current symptoms about 5 hours ago after she ate a sausage biscuit. Better after receiving GI cocktail here. Thank you No known personal history of coronary disease. Non-smoker. Denies use of alcohol. She is obese. No history of hyperlipidemia. No history of hypertension. No history of diabetes mellitus. Family history is negative for coronary disease. Denies cocaine abuse. No history of thromboembolic disease. - Related Data Allergies/Adverse Reactions: doxycycline [Doxycycline] Allergy (Verified 05/05/19 14:37) erythromycin base [Erythromycin Base] Allergy (Verified 05/05/19 14:37) Past Medical History - General Information source: Patient, Relative - Social History Smoking Status: Never Smoker Chew tobacco use (# tins/day): No Frequency of alcohol use: None Drug Abuse: None Family History: Reviewed & Not Pertinent Patient has suicidal ideation: No Patient has homicidal ideation: No - Past Medical History Cardiac Medical History: Reports: Hx Hypertension Renal/ Medical History: Denies: Hx Peritoneal Dialysis GI Medical History: Reports: Hx Gastroesophageal Reflux Disease, Hx Ulcer Past Surgical History: Reports: Hx Dilation and Curettage, Hx Gynecologic Surgery - Immunizations Hx Diphtheria, Pertussis, Tetanus Vaccination: Yes Hx Pneumococcal Vaccination: 06/26/00 Review of Systems - Review of Systems Notes: Constitutional: Negative for fever. HENT: Negative for sore throat. Eyes: Negative for visual changes. Cardiovascular: As per HPI. Respiratory: Negative for shortness of breath. Gastrointestinal: As per HPI. Genitourinary: Negative for dysuria. Musculoskeletal: Negative for back pain. Skin: Negative for rash. Neurological: Negative for headaches, weakness or numbness. 10 point ROS negative except as marked above and in HPI. Physical Exam - Vital signs Vitals: Temp Pulse BP Pulse Ox 97.8 F 70 154/103 H 97 06/01/19 16:26 06/01/19 16:26 06/01/19 16:26 06/01/19 16:26 - Notes Notes: GENERAL: Well-developed well-nourished appearing in no acute distress. SKIN: Good turgor no rashes. HEAD: Normocephalic atraumatic. EYES: PERRLA. Conjunctivae and sclerae clear. EARS: CANALS AND TMS CLEAR. NOSE: CLEAR. MOUTH: Moist mucosa. Good dentition. No stridor or edema. No drooling. NECK: Supple. No masses or thyromegaly. No adenopathy. Carotids 2+ without bruits. No JVD. BACK: Symmetrical without tenderness. CHEST: Respirations unlabored. Breath sounds clear and symmetrical. HEART: Regular rhythm. No murmur gallop or rub. ABDOMEN: Obese. Soft nontender without masses, organomegaly or rebound. Bowel sounds normally active. No bruits. GENITALIA: Deferred. EXTREMITIES: No edema. No calf tenderness. Cap refill less than 1.5 seconds. Dorsalis pedis and posterior tibial pulses 3+ and symmetrical. NEUROLOGICAL: GCS 15. Alert and oriented x3. Normal gait. Fluent speech. Cranial nerves II through XII intact. Sensorimotor and cerebellar normal. Normal tone. Course - Re-evaluation Re-evalutation: 06/01/19 18:18 Initial troponin on this lady is in indeterminate range 0.042 this really does not seem to fit with the rest of her data as her current symptoms and risk profile suggests that her discomfort is likely to be of noncardiac origin most probably reflux. I am going to repeat her troponin and EKG at this point and then we will reevaluate for disposition. I explained this to the patient and her relative who is at the bedside. 06/01/19 20:05 Repeat troponin at 2 hours following the first as a is trending upward at 0.126. Patient is pain-free at this time. We are repeating an EKG. She appears to me et criteria for non-STEMI. I presented the patient to the on-call hospitalist Dr. Andrez Palma who is reluctant to admit without cardiology consultation. I spoke with Dr. Villarreal from cardiology and he says the patient can be cathed here within 48 hours and requests that we have her admitted by the hospitalist. We are awaiting callback from Dr. Palma at this time. 06/01/19 21:16 Admission is declined by Dr. Palma. I spoke with Dr. Crawford with [facility] cardiology and they have accepted patient for transfer to [facility]. Patient has received aspirin orally, transdermal nitroglycerin and will be started on IV heparin infusion low dose. - Vital Signs Vital signs: Temp Pulse Resp BP Pulse Ox 97.8 F 70 22 H 167/100 H 100 06/01/19 16:35 06/01/19 16:26 06/01/19 20:02 06/01/19 20:02 06/01/19 20:02 - Laboratory Result Diagrams: 06/01/19 16:58 06/01/19 16:58 Laboratory results interpreted by me: 06/01/19 06/01/19 16:58 16:58 RDW 14.8 H Est GFR (MDRD) Non-Af 59 L Glucose 122 H - EKG Interpretation by Me Additional EKG results interpreted by me: 06/01/19 18:21 Rate 66. Normal sinus rhythm. Normal axis. Nonspecific T wave changes. Discharge - Discharge Clinical Impression: Acute [id number] myocardial infarction Disposition: [facility]
--- NOTE | 2019-06-01 20:05 | EKG REPORT ---
SEVERITY:- BORDERLINE ECG - SINUS RHYTHM BORDERLINE T ABNORMALITIES, DIFFUSE LEADS : Confirmed by: Jasmine Avila MD 01-Jun-2019 20:04:22
--- NOTE | 2019-06-01 20:05 | EKG REPORT ---
SEVERITY:- BORDERLINE ECG - SINUS RHYTHM BORDERLINE T ABNORMALITIES, INFERIOR LEADS : Confirmed by: Jasmine Avila MD 01-Jun-2019 20:04:25
[2019-06-01] MEDS ORDERED: NITROGLYCERIN 2% OINTMENT 1 GM PACKET TP ONE (20:50)
[2019-06-01] MEDS ORDERED: ASPIRIN 81 MG TABLET, CHEWABLE PO ONE (20:50)
[2019-06-01] MEDS ORDERED: HEPARIN SOD (PORCINE) 1,000 UNIT/ML 10 ML VIAL IV ONE (20:53)
[2019-06-01] MEDS ORDERED: HEPARIN SODIUM,PORCINE/D5W 25,000 UNIT/250 ML RTUINJ IV PRN (20:53)
[2019-06-01 20:59] LABS: INTERNATIONAL RATION (INR) 0.97; PROTHROMBIN TIME 12.9 SEC (11.4-15.4)
[2019-06-01 21:00] LABS: PARTIAL THROMBOPLASTIN TIME 30.4 SEC (23.5-35.8)
[2019-06-01] MEDS ORDERED: HEPARIN SOD (PORCINE) 1,000 UNIT/ML 10 ML VIAL IV PRN (23:53)
[2019-06-02] MEDS ORDERED: ACETAMINOPHEN 325 MG TABLET PO ONE (03:00)
[2019-06-02] MEDS ORDERED: METOCLOPRAMIDE HCL 10 MG TABLET PO ONE (09:21)
--- NOTE | 2019-06-02 12:06 | EKG REPORT ---
SEVERITY:- ABNORMAL ECG - SINUS RHYTHM NONSPECIFIC T ABNORMALITIES, DIFFUSE LEADS ST ELEVATION SUGGESTS PERICARDITIS : Confirmed by: Jasmine Avila MD 02-Jun-2019 12:05:44
[2019-06-02 15:59] VITALS: BP 139/89
== END 2019-06-02 16:07 | disposition short-term general hospital (02) ==
LOC: ER 16:15
DX: I21.4 Non-ST elevation (NSTEMI) myocardial infarction (principal); R07.9 Chest pain, unspecified; R10.13 Epigastric pain; I10 Essential (primary) hypertension; E66.9 Obesity, unspecified
CPT/HCPCS: 93005; 96376; 99285; 96365; 96366; 36415; 85025; 85610; 85730; 80053; 84484; 71046; 93010; J1644 ×3; J3490

== ENCOUNTER 2019-07-28 11:12 | Emergency (ER) | payer OTHER ==
[2019-07-28 11:25] VITALS: BP 152/92
[2019-07-28] MEDS ORDERED: ACETAMINOPHEN 325 MG TABLET PO ONE (12:13)
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
== END 2019-07-28 13:15 | disposition home or self-care (01) ==
LOC: ER 11:12
DX: M25.511 Pain in right shoulder (principal); V43.62XA Car passenger injured in collision with other type car in traffic accident, initial encounter; E78.00 Pure hypercholesterolemia, unspecified; I10 Essential (primary) hypertension; Z79.01 Long term (current) use of anticoagulants
CPT/HCPCS: 99283

== ENCOUNTER 2019-11-29 07:43 | Emergency (ER) | payer OTHER ==
--- NOTE | 2019-11-29 08:32 | RADIOLOGY REPORT (SQ) ---
EXAM DESCRIPTION: CT HEAD WITHOUT IMAGES COMPLETED DATE/TIME: 11/29/2019 8:14 am REASON FOR STUDY: blurry vision COMPARISON: None. TECHNIQUE: Axial images acquired through the brain without intravenous contrast. Images reviewed wi th bone, brain and subdural windows. Additional sagittal and coronal reconstructions were generated. Images stored on PACS. All CT scanners at this facility use dose modulation, iterative reconstruction, and/or weight based d osing when appropriate to reduce radiation dose to as low as reasonably achievable (ALARA). [facility]: Dose Right [facility]: CareDose [facility]: Dose Right [facility]: Teradose 4D [facility]: Smart Anti-[employer]icrobial Solutions RADIATION DOSE: CT Rad equipment meets quality standard of care and radiation dose reduction techniq ues were employed. CTDIvol: 48.7 mGy. DLP: 955 mGy-cm. LIMITATIONS: None. FINDINGS: There is no acute intracranial hemorrhage, vascular territorial infarct, extra-axial fluid collection, mass effect or midline shift. The romo-white matter differentiation is preserved. Ther e is no effacement of the cerebral sulci or basal subarachnoid cisterns. The orbits and globes are intact. The paranasal sinuses are clear. There is no fracture of the calv arium. IMPRESSION: No acute intracranial abnormality. EVIDENCE OF ACUTE STROKE: NO. COMMENT: Quality ID # [id number]: Final reports with documentation of one or more dose reduction techniques (e.g., Automated exposure control, adjustment of the mA and/or kV according to patient size, use of iterative reconstruction technique) TECHNICAL DOCUMENTATION: JOB ID: [id number] 2010 [employer]- All Rights Reserved Reading location - IP/workstation name: [email or web address]
[2019-11-29 09:19] LABS: ABSOLUTE EOSINOPHILS # (AUTO) 0.1 10^3/uL (0.0-0.6); ABSOLUTE LYMPHOCYTES (AUTO) 2.8 10^3/uL (0.5-4.7); ABSOLUTE MONOCYTES (AUTO) 0.5 10^3/uL (0.1-1.4); BASOPHILS % (AUTO) 0.5 % (0-2); EOSINOPHILS % (AUTO) 1.7 % (0-6); HEMOGLOBIN 13.4 g/dL (12.0-15.5); LYMPHOCYTES % (AUTO) 32.8 % (13-45); MEAN CORPUSCULAR HEMOGLOBIN 29.1 pg (27.0-33.4); MEAN CORPUSCULAR HGB CONC 33.6 g/dL (32.0-36.0); MEAN CORPUSCULAR VOLUME 87 fl (80-97); MONOCYTES % (AUTO) 6.2 % (3-13); PLATELET COUNT 339 10^3/uL (150-450); RED BLOOD COUNT 4.61 10^6/uL (3.72-5.28); RED CELL DISTRIBUTION WIDTH 14.5 % (11.5-14.0); SEGMENTED NEUTROPHILS % (AUTO) 58.8 % (42-78); TOTAL CELLS COUNTED % (AUTO) 100 %; WHITE BLOOD COUNT 8.5 10^3/uL (4.0-10.5)
[2019-11-29 09:26] LABS: APPEARANCE,URINE CLEAR; BILIRUBIN,URINE NEGATIVE (NEGATIVE); COLOR,URINE YELLOW; GLUCOSE, URINE >=500 mg/dL (NEGATIVE); KETONES,URINE NEGATIVE (NEGATIVE); LEUKOCYTE ESTERASE,URINE NEGATIVE (NEGATIVE); NITRITE,URINE NEGATIVE (NEGATIVE); PROTEIN,URINE NEGATIVE (NEGATIVE); URINE SPECIFIC GRAVITY 1.032; UROBILINOGEN,URINE NEGATIVE mg/dL (<2.0)
[2019-11-29 09:43] LABS: ALBUMIN 3.6 g/dL (3.5-5.0); ALKALINE PHOSPHATASE 189 U/L (38-126); ANION GAP 7 (5-19); ASPARTATE AMINO TRANSFERASE 17 U/L (14-36); BILIRUBIN,TOTAL 0.6 mg/dL (0.2-1.3); BLOOD UREA NITROGEN 12 mg/dL (7-20); CALCIUM 9.2 mg/dL (8.4-10.2); CARBON DIOXIDE 27 mmol/L (22-30); CHLORIDE 98 mmol/L (98-107); POTASSIUM 4.3 mmol/L (3.6-5.0); TOTAL PROTEIN 6.8 g/dL (6.3-8.2)
[2019-11-29 09:54] LABS: GLUCOSE 439 mg/dL (75-110)
[2019-11-29] MEDS: NORMAL SALINE 1000 ML 1,000 ML IV PRN ×2 (10:43→12:17)
--- NOTE | 2019-11-29 14:27 | ER Document Report ---
Entered by ARACELI LEWIS SCRIBE 11/29/19 1002 Acting as scribe for:HAMIDA MONTEIRO MD ED General - General Chief Complaint: High Blood Sugar Stated Complaint: BLOOD SUGAR PROBLEMS Information source: Patient Notes: This 49-year-old female presents to the emergency department complaining of an elevated blood sugar that was checked this morning. Patient explains that for the past couple of weeks, she has noticed blurred vision and increased thirst with increased urination. Patient states that this morning, her friend was picking her up from work to take her home. Patient said that her friend tested her blood sugar and it was 457. Patient stated that friend recommended she go to the emergency department. Patient stated that she drank water prior to arrival. Patient denies dizziness. Patient states that she has not had a problem with her blood sugar before. TRAVEL OUTSIDE OF THE [place] IN LAST 30 DAYS: No - Related Data Allergies/Adverse Reactions: doxycycline [Doxycycline] Allergy (Verified 07/28/19 11:58) erythromycin base [Erythromycin Base] Allergy (Verified 07/28/19 11:58) Past Medical History - General Information source: Patient - Social History Smoking Status: Never Smoker Cigarette use (# per day): No Chew tobacco use (# tins/day): No Frequency of alcohol use: None Drug Abuse: None Family History: Reviewed & Not Pertinent Patient has homicidal ideation: No - Past Medical History Cardiac Medical History: Reports: Hx Hypercholesterolemia, Hx Hypertension GI Medical History: Reports: Hx Gastroesophageal Reflux Disease, Hx Ulcer Past Surgical History: Reports: Hx Cardiac Catheterization, Hx Coronary Stent - X1 (2019), Hx Dilation and Curettage, Hx Gynecologic Surgery - Immunizations Hx Diphtheria, Pertussis, Tetanus Vaccination: Yes Hx Pneumococcal Vaccination: 06/26/00 Review of Systems - Review of Systems Constitutional: No symptoms reported EENT: See HPI, Blurred vision Cardiovascular: See HPI. denies: Dizziness Respiratory: No symptoms reported Gastrointestinal: No symptoms reported Genitourinary: No symptoms reported Female Genitourinary: No symptoms reported Musculoskeletal: No symptoms reported Skin: No symptoms reported Hematologic/Lymphatic: No symptoms reported Neurological/Psychological: No symptoms reported -: Yes All other systems reviewed and negative Physical Exam - Vital signs Vitals: Temp Pulse Resp BP Pulse Ox 98.3 F 77 16 141/90 H 97 11/29/19 07:46 11/29/19 07:46 11/29/19 07:46 11/29/19 07:46 11/29/19 07:46 - Notes Notes: Physical Exam: General: Alert, appears well. HEENT: Normocephalic. Atraumatic. PERRL. Extraocular movements intact. Oropharynx clear. Neck: Supple. Non-tender. Respiratory: No respiratory distress. Clear and equal breath sounds bilaterally. Cardiovascular: Regular rate and rhythm. Abdominal: Normal Inspection. Non-tender. No distension. Normal Bowel Sounds. Back: No gross abnormalities. Extremities: Moves all four extremities. Upper extremities: Normal inspection. Normal ROM. Lower extremities: Normal inspection. No edema. Normal ROM. Neurological: Normal cognition. AAOx4. Normal speech. Psychological: Normal affect. Normal Mood. Skin: Warm. Dry. Normal color. Course - Re-evaluation Re-evalutation: 11/29/19 14:20 The patient is in with patient resting comfortably not showing any signs of distress states she is ready to go. She is received 2 L of IV fluids feels much better he does not have any blurred vision at this time. - Vital Signs Vital signs: Temp Pulse Resp BP Pulse Ox 98.3 F 77 16 141/90 H 97 11/29/19 07:51 11/29/19 07:46 11/29/19 07:46 11/29/19 07:46 11/29/19 07:46 - Laboratory Result Diagrams: 11/29/19 09:01 11/29/19 09:01 Laboratory results interpreted by me: 11/29/19 11/29/19 11/29/19 07:53 09:01 09:01 RDW 14.5 H Sodium 132.4 L Glucose 439 H* POC Glucose 440 H* Alkaline Phosphatase 189 H Urine Glucose (UA) 11/29/19 11/29/19 11/29/19 09:09 11:39 12:17 RDW Sodium Glucose POC Glucose 326 H 284 H Alkaline Phosphatase Urine Glucose (UA) >=500 H 11/29/19 14:02 RDW Sodium Glucose POC Glucose 311 H Alkaline Phosphatase Urine Glucose (UA) 11/29/19 14:20 Patient has a blood sugar of 440 on arrival. Patient's blood sugar now is down to 300. - Diagnostic Test Radiology reviewed: Image reviewed, Reports reviewed Radiology results interpreted by me: 11/29/19 14:21 CT scan of head showed no acute process no evidence for stroke. Discharge - Discharge Clinical Impression: Type 2 diabetes mellitus, Hyperglycemia due to type 2 diabetes mellitus Condition: Stable Disposition: HOME, SELF-CARE Additional Instructions: Hyperglycemia (High Blood Sugar) You have an abnormally high blood sugar. Not all high blood sugar requires long-term treatment. High blood sugar can be due to medications, , or the stress of illness. (These cases are "borderline diabetes.") If the doctor feels your high blood sugar might resolve with time, you may not require treatment now. You will be scheduled for further evaluation. It's very important that you follow through, to see if the blood sugar returns to normal levels. Uncontrolled high blood sugar leads to early heart disease, strokes, nerve damage, eye damage, and kidney damage. Call the physician if there is faintness, excess sleepiness, or very rapid breathing.Diabetes You have an abnormally high blood sugar, suspicious for diabetes. Not all high blood sugar requires long-term treatment. High blood sugar can be due to medications, , or the stress of illness. (These cases are "borderline diabetes.") If the doctor feels your high blood sugar might get better with time, you may not require treatment now. You will be scheduled for further evaluation. It's very important that you follow through. Uncontrolled high blood sugar leads to early heart disease, strokes, nerve damage, eye damage, and kidney damage. All diabetics should follow a diet designed to control the blood sugar. Overweight diabetics should exercise regularly and lose weight. If this is not sufficient to control the blood sugar, pills or insulin shots are necessary. Younger people who develop diabetes almost always require insulin daily. Home testing of blood sugars or urine sugar is required. Diabetic teaching is available to help you figure insulin doses and monitor the blood sugar. Call the physician if there is faintness, excess sleepiness, or very rapid breathing. If hypoglycemia (LOW blood sugar) develops, symptoms are shakiness, weakness, sweating, and confusion. In this case, you should eat or drink something with sugar at once. Follow-up with your primary care physician or the clinic in [facility]. [facility] Prescriptions: Metformin HCl [Glucophage 500 mg Tablet] 500 mg PO BID #60 tablet I personally performed the services described in the documentation, reviewed and edited the documentation which was dictated to the scribe in my presence, and it accurately records my words and actions.
[2019-11-29 14:35] VITALS: BP 140/93
[2019-11-29] MEDS ORDERED: METFORMIN HCL 500 MG TABLET PO ONE (14:41)
== END 2019-11-29 14:48 | disposition home or self-care (01) ==
LOC: ER 07:43
DX: E11.65 Type 2 diabetes mellitus with hyperglycemia (principal); H53.8 Other visual disturbances; I10 Essential (primary) hypertension; Z88.1 Allergy status to other antibiotic agents
CPT/HCPCS: 96361; 99285; 96360; 36415; 82962; 85025; 80053; 81001; 70450; J7030

== ENCOUNTER 2020-04-22 08:07 | Emergency (ER) | payer SELFPAY ==
[2020-04-22 08:19] VITALS: BP 146/81
[2020-04-22] MEDS ORDERED: NITROGLYCERIN 0.4 MG/TAB 25 TAB/BOTTLE SL PRN (08:54)
[2020-04-22] MEDS ORDERED: ASPIRIN 325 MG TABLET PO ONE (08:54)
[2020-04-22 09:06] LABS: ABSOLUTE EOSINOPHILS # (AUTO) 0.1 10^3/uL (0.0-0.6); ABSOLUTE LYMPHOCYTES (AUTO) 2.1 10^3/uL (0.5-4.7); ABSOLUTE MONOCYTES (AUTO) 0.5 10^3/uL (0.1-1.4); ABSOLUTE NEUT (AUTO) 3.6 10^3/uL (1.7-8.2); BASOPHILS % (AUTO) 0.7 % (0-2); EOSINOPHILS % (AUTO) 1.3 % (0-6); HEMOGLOBIN 14.7 g/dL (12.0-15.5); LYMPHOCYTES % (AUTO) 33.2 % (13-45); MEAN CORPUSCULAR HEMOGLOBIN 28.8 pg (27.0-33.4); MEAN CORPUSCULAR HGB CONC 33.5 g/dL (32.0-36.0); MEAN CORPUSCULAR VOLUME 86 fl (80-97); MONOCYTES % (AUTO) 8.3 % (3-13); PLATELET COUNT 342 10^3/uL (150-450); RED BLOOD COUNT 5.12 10^6/uL (3.72-5.28); RED CELL DISTRIBUTION WIDTH 15.6 % (11.5-14.0); SEGMENTED NEUTROPHILS % (AUTO) 56.5 % (42-78); TOTAL CELLS COUNTED % (AUTO) 100 %; WHITE BLOOD COUNT 6.4 10^3/uL (4.0-10.5)
--- NOTE | 2020-04-22 09:16 | RADIOLOGY REPORT (SQ) ---
EXAM DESCRIPTION: CHEST SINGLE VIEW IMAGES COMPLETED DATE/TIME: 04/22/2020 9:08 am REASON FOR STUDY: CP COMPARISON: 06/01/2019 EXAM PARAMETERS: NUMBER OF VIEWS: One view. TECHNIQUE: Single frontal radiographic view of the chest acquired. RADIATION DOSE: NA LIMITATIONS: None. FINDINGS: LUNGS AND PLEURA: No opacities, masses or pneumothorax. No pleural effusion. MEDIASTINUM AND HILAR STRUCTURES: No masses. Contour normal. HEART AND VASCULAR STRUCTURES: Heart normal in size. Normal vasculature. BONES: No acute findings. HARDWARE: None in the chest. OTHER: No other significant finding. IMPRESSION: NO ACUTE RADIOGRAPHIC FINDING IN THE CHEST. TECHNICAL DOCUMENTATION: JOB ID: [id number] 2010 [employer]- All Rights Reserved Reading location - IP/workstation name: [email or web address]
[2020-04-22 09:28] LABS: ANION GAP 9 (5-19); BLOOD UREA NITROGEN 13 mg/dL (7-20); CALCIUM 9.9 mg/dL (8.4-10.2); CARBON DIOXIDE 23 mmol/L (22-30); CHLORIDE 107 mmol/L (98-107); GLUCOSE 120 mg/dL (75-110); POTASSIUM 4.3 mmol/L (3.6-5.0)
--- NOTE | 2020-04-22 10:22 | ER Document Report ---
ED General - General Chief Complaint: Chest Pain Stated Complaint: CHEST TIGHTNESS,ARM WEAKNESS Time Seen by Provider: 04/22/20 08:27 Primary Care Provider: YAZAN DE LA CRUZ MD [ACTIVE STAFF] - Follow up in 3-5 days CORTEZ CALERO MD [Primary Care Provider] - Follow up as needed Notes: 49-year-old lady with CAD status post cath and stent 10 months ago presents with vague left hand tingling for 3 or 4 days, not true weakness or paresthesia but tingling. Is been constant. Radiates up her left arm. 2 days ago she began having intermittent chest pain which is sharp in nature transient nonexertional for minutes to seconds. Happened this morning so came to ED. Had a cath in [place] and has not followed with cardiology in [facility] but has an appointment or is going to call for an appointment soon. No cough no hemoptysis. . On exam she looks normal her EKG looks normal and she has a negative troponin. I discussed her case with Dr. De La Cruz who is in the same group as the patient is scheduled to see. The patient is not keen on staying in the hospital and I think she would be appropriate for outpatient stress testing given her recent cath atypical pain and negative enzymes after a couple days of pain. She agrees to this and we used shared decision-making to determine his disposition. I have discussed with the patient there likely diagnosis, aftercare plan, follow-up plans and my usual and customary return precautions. They verbalized understanding of this. TRAVEL OUTSIDE OF THE [place] IN LAST 30 DAYS: No - Related Data Allergies/Adverse Reactions: doxycycline [Doxycycline] Allergy (Verified 04/22/20 08:38) erythromycin base [Erythromycin Base] Allergy (Verified 04/22/20 08:38) Home Medications: panto. plavix. lipitor. asa Past Medical History - Social History Smoking Status: Never Smoker Chew tobacco use (# tins/day): No Frequency of alcohol use: Occasional Drug Abuse: None Family History: Reviewed & Not Pertinent Patient has homicidal ideation: No - Past Medical History Cardiac Medical History: Reports: Hx Hypercholesterolemia, Hx Hypertension Renal/ Medical History: Denies: Hx Peritoneal Dialysis GI Medical History: Reports: Hx Gastroesophageal Reflux Disease, Hx Ulcer Past Surgical History: Reports: Hx Cardiac Catheterization, Hx Coronary Stent - X1 (2019), Hx Dilation and Curettage, Hx Gynecologic Surgery - Immunizations Hx Diphtheria, Pertussis, Tetanus Vaccination: Yes Hx Pneumococcal Vaccination: 06/26/00 Physical Exam - Vital signs Vitals: Temp Pulse Resp BP Pulse Ox 98.2 F 62 15 146/81 H 96 04/22/20 08:17 04/22/20 08:17 04/22/20 08:17 04/22/20 08:17 04/22/20 08:17 Course - Re-evaluation Re-evalutation: 04/22/20 10:19 Heart score is 4 Patient presents with vague left-sided hand tingling intermittently for a few days with also vague chest pressure. Nonexertional nonpositional and random in nature. Happened this morning as well. She had an angioplasty in May in [facility] in the ER again Patient does not want stay in the hospital, she refused nitro and is now pain- free without it. Her Trope was negative. I discussed her case with Dr. Jarrell De La Cruz from cardiology who actually is in the same group as the patient is scheduled to see and he will see her in the office and schedule stress test rapidly, The patient's heart score puts her on the fence but she would like to go home after risk-benefit discussion I think is appropriate I have discussed with the patient there likely diagnosis, aftercare plan, fo llow-up plans and my usual and customary return precautions. They verbalized understanding of this. - Vital Signs Vital signs: Temp Pulse Resp BP Pulse Ox 98.2 F 62 15 146/81 H 96 04/22/20 08:17 04/22/20 08:17 04/22/20 08:17 04/22/20 08:17 04/22/20 08:17 - Laboratory Result Diagrams: 04/22/20 08:48 04/22/20 08:48 Laboratory results interpreted by me: 04/22/20 04/22/20 08:48 08:48 RDW 15.6 H Glucose 120 H - Diagnostic Test Radiology reviewed: Image reviewed, Reports reviewed - EKG Interpretation by Me EKG shows normal: Sinus rhythm Rate: Normal Rhythm: NSR When compared to previous EKG there are: No significant change - Unchanged T wave inversions likely secondary hypertrophy/repolarization., Previous EKG unavailable - No significant ST or T wave changes Discharge - Discharge Clinical Impression: Chest pain, unspecified Qualifiers: Chest pain type: unspecified Qualified Code(s): R07.9 - Chest pain, unspecified Condition: Good Disposition: HOME, SELF-CARE Instructions: Chest Pain of Unclear Cause ([facility]), Nitrates ([facility]) Referrals: CORTEZ CALERO MD [Primary Care Provider] - Follow up as needed YAZAN DE LA CRUZ MD [ACTIVE STAFF] - Follow up in 3-5 days
--- NOTE | 2020-04-22 12:49 | EKG REPORT ---
SEVERITY:- ABNORMAL ECG - SINUS RHYTHM NONSPECIFIC T ABNORMALITIES, LATERAL LEADS : Confirmed by: Andreas Dolan MD 22-Apr-2020 12:48:34
== END 2020-04-22 11:02 | disposition home or self-care (01) ==
LOC: ER 08:07
DX: R07.9 Chest pain, unspecified (principal); M62.81 Muscle weakness (generalized); R20.2 Paresthesia of skin; Z88.1 Allergy status to other antibiotic agents; Z79.899 Other long term (current) drug therapy; Z79.02 Long term (current) use of antithrombotics/antiplatelets; Z79.82 Long term (current) use of aspirin; I10 Essential (primary) hypertension
CPT/HCPCS: 36415; 71045; 80048; 84484; 85025; 93005; 93010; 99285

== ENCOUNTER 2020-06-16 00:01 | Emergency (ER) | payer SELFPAY ==
[2020-06-16 00:47] LABS: ABSOLUTE BASOPHILS # (AUTO) 0.1 10^3/uL (0.0-0.2); ABSOLUTE EOSINOPHILS # (AUTO) 0.1 10^3/uL (0.0-0.6); ABSOLUTE LYMPHOCYTES (AUTO) 3.8 10^3/uL (0.5-4.7); ABSOLUTE MONOCYTES (AUTO) 0.6 10^3/uL (0.1-1.4); ABSOLUTE NEUT (AUTO) 7.4 10^3/uL (1.7-8.2); BASOPHILS % (AUTO) 0.6 % (0-2); EOSINOPHILS % (AUTO) 1.1 % (0-6); HEMATOCRIT 38.6 % (36.0-47.0); HEMOGLOBIN 12.6 g/dL (12.0-15.5); LYMPHOCYTES % (AUTO) 31.8 % (13-45); MEAN CORPUSCULAR HEMOGLOBIN 28.8 pg (27.0-33.4); MEAN CORPUSCULAR HGB CONC 32.7 g/dL (32.0-36.0); MEAN CORPUSCULAR VOLUME 88 fl (80-97); MONOCYTES % (AUTO) 4.8 % (3-13); PLATELET COUNT 298 10^3/uL (150-450); RED BLOOD COUNT 4.38 10^6/uL (3.72-5.28); RED CELL DISTRIBUTION WIDTH 15.6 % (11.5-14.0); SEGMENTED NEUTROPHILS % (AUTO) 61.7 % (42-78); TOTAL CELLS COUNTED % (AUTO) 100 %; WHITE BLOOD COUNT 11.9 10^3/uL (4.0-10.5)
[2020-06-16 01:08] LABS: ALBUMIN 3.4 g/dL (3.5-5.0); ALKALINE PHOSPHATASE 99 U/L (38-126); ANION GAP 7 (5-19); ASPARTATE AMINO TRANSFERASE 16 U/L (14-36); BILIRUBIN,DIRECT 0.1 mg/dL (0.0-0.4); BILIRUBIN,TOTAL 0.3 mg/dL (0.2-1.3); BLOOD UREA NITROGEN 15 mg/dL (7-20); CALCIUM 9.1 mg/dL (8.4-10.2); CARBON DIOXIDE 24 mmol/L (22-30); CHLORIDE 106 mmol/L (98-107); CREATINE KINASE 48 U/L (30-135); GLUCOSE 120 mg/dL (75-110); POTASSIUM 3.6 mmol/L (3.6-5.0); TOTAL PROTEIN 6.7 g/dL (6.3-8.2)
--- NOTE | 2020-06-16 01:11 | ER Document Report ---
Entered by JEAN DAVIS SCRIBE 06/16/20 0038 Acting as scribe for:JORGE QUINONES, DO ED General - General Chief Complaint: Numbness of Arm Stated Complaint: LEFT ARM TINGLE Time Seen by Provider: 06/16/20 00:21 Primary Care Provider: KATIE YOUNGER MD [ACTIVE PROVISIONAL STAFF] - 06/16/20 CORTEZ CALERO MD [Primary Care Provider] - Follow up as needed Mode of Arrival: Ambulatory Information source: Patient Notes: This 49 year old female patient presents to the emergency department today with complaints of tingling that begins in her left finger tips and travels to the mid forearm for the last 4-5 days. Patient reports that the last time she had this sensation was when she found out she needed to have a stent placed in her heart, although at that time the tingling sensation traveled from her fingertips to her shoulder. She also mentions that her tongue has been turning purple/black for the last 6 months and "no one can figure out what it is". She denies COVID- 19 exposure or fevers. TRAVEL OUTSIDE OF THE [place] IN LAST 30 DAYS: No - Related Data Allergies/Adverse Reactions: doxycycline [Doxycycline] Allergy (Verified 04/22/20 08:38) erythromycin base [Erythromycin Base] Allergy (Verified 04/22/20 08:38) Past Medical History - General Information source: Patient - Social History Smoking Status: Never Smoker Cigarette use (# per day): No Frequency of alcohol use: None Drug Abuse: None Lives with: Family Family History: Reviewed & Not Pertinent - Past Medical History Cardiac Medical History: Reports: Hx Coronary Artery Disease, Hx Hypercholesterolemia, Hx Hypertension Endocrine Medical History: Reports: Hx Diabetes Mellitus Type 2 GI Medical History: Reports: Hx Gastroesophageal Reflux Disease, Hx Ulcer Past Surgical History: Reports: Hx Cardiac Catheterization, Hx Coronary Stent - X1 (2019), Hx Dilation and Curettage, Hx Gynecologic Surgery - Immunizations Hx Diphtheria, Pertussis, Tetanus Vaccination: Yes Hx Pneumococcal Vaccination: 06/26/00 Review of Systems - Review of Systems Constitutional: denies: Fever EENT: No symptoms reported Cardiovascular: No symptoms reported Respiratory: No symptoms reported Gastrointestinal: No symptoms reported Genitourinary: No symptoms reported Female Genitourinary: No symptoms reported Musculoskeletal: No symptoms reported Skin: No symptoms reported Hematologic/Lymphatic: No symptoms reported Neurological/Psychological: See HPI, Tingling - left hand to left mid forearm -: Yes All other systems reviewed and negative Physical Exam - Vital signs Vitals: Pulse Ox 100 06/16/20 00:14 - Notes Notes: Physical Exam: General: Alert, appears well. HEENT: Normocephalic. Atraumatic. PERRL. Extraocular movements intact. Oropharynx clear. Hyperpigmentation of the tongue. Neck: Supple. Non-tender. Respiratory: No respiratory distress. Clear and equal breath sounds bilaterally. Cardiovascular: Regular rate and rhythm. Abdominal: Obese. Non-tender. No distension. Normal Bowel Sounds. Back: No gross abnormalities. Extremities: Moves all four extremities. Upper extremities: Normal inspection. Normal ROM. Lower extremities: Normal inspection. No edema. Normal ROM. Neurological: Normal cognition. AAOx4. Normal speech. Psychological: Normal affect. Normal Mood. Skin: Warm. Dry. Normal color. - Skin Skin Temperature: Warm - few small patchy areas on back. plaque like rash on back well demarkated some excoriation. Skin Moisture: Dry Skin Color: Normal Course - Re-evaluation Re-evalutation: 06/16/20 02:17 MDM 49 year old with tingling in left hand. No discreet chest pain. EKG which is not normal at baseline - inf lateral t wave inversions -is without change. Also blood work is reassuring. We have discussed follow up with dental aide and pcp and perhaps oral surgeon. Also discussed return here precautions. - Vital Signs Vital signs: Temp Pulse Resp BP Pulse Ox 97.9 F 12 141/108 H 98 06/16/20 01:26 06/16/20 01:00 06/16/20 00:15 06/16/20 01:00 - Laboratory Results Result Diagrams: 06/16/20 00:24 06/16/20 00:24 Laboratory Results Interpreted: 06/16/20 06/16/20 00:24 00:24 WBC 11.9 H RDW 15.6 H Sodium 136.8 L Est GFR (MDRD) Non-Af 50 L Glucose 120 H Albumin 3.4 L Critical Laboratory Results Reviewed: No Critical Results - Radiology Results Critical Radiology Results Reviewed: No Critical Results - EKG Interpretation by Mn EKG shows normal: Sinus rhythm Rate: Normal Rhythm: NSR - NSR NL [place] 67 BPM Repol Ab infer lateral t wave inversion similar to previous. Discharge - Discharge Clinical Impression: Left arm weakness Hypertension Qualifiers: Hypertension type: unspecified Qualified Code(s): I10 - Essential (primary) hypertension Condition: Stable Disposition: HOME, SELF-CARE Instructions: High Blood Pressure ([facility]), Weakness ([facility]) Additional Instructions: See your primary doctor in follow up and discuss having a test of adrenal glands. Call an oral surgeon to have the tongue looked at further. Plenty of fluids and rest. Call either your dental aide at [facility] or Dr. Younger for follow up regarding the left arm tingling. Return here for increased weakness, chest pain or shortness of breath. Your medicine has been sent to [facility] in [place]. Prescriptions: Triamcinolone Acetonide [Aristocort 0.1% Ointment] 1 applic TP BID #60 gm Referrals: CORTEZ CALERO MD [Primary Care Provider] - Follow up as needed KATIE YOUNGER MD [ACTIVE PROVISIONAL STAFF] - 06/16/20 I personally performed the services described in the documentation, reviewed and edited the documentation which was dictated to the scribe in my presence, and it accurately records my words and actions.
[2020-06-16 01:17] LABS: CREATINE KINASE MB < 0.22 ng/mL (<4.55); TROPONIN I < 0.012 ng/mL
--- NOTE | 2020-06-16 01:25 | RADIOLOGY REPORT (SQ) ---
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 Comparison: Chest radiograph performed 04/22/2020. Findings: The cardiomediastinal silhouette is normal in size. No pneumothorax is seen. No acute airspace opacities are seen. No discrete pleural effusion is apparent. Impression: No acute airspace opacities are seen.
[2020-06-16] MEDS ORDERED: ONDANSETRON HCL INJ/PF 4 MG/2 ML SDV IV ONE (01:28)
[2020-06-16 02:55] VITALS: BP 133/91
--- NOTE | 2020-06-16 07:24 | EKG REPORT ---
SEVERITY:- ABNORMAL ECG - SINUS RHYTHM NONSPECIFIC T ABNORMALITIES, DIFFUSE LEADS : Confirmed by: Andreas Dolan MD 16-Jun-2020 07:22:59
== END 2020-06-16 02:54 | disposition home or self-care (01) ==
LOC: ER 00:01
DX: R20.0 Anesthesia of skin (principal); R53.1 Weakness; I10 Essential (primary) hypertension; Z88.3 Allergy status to other anti-infective agents; I25.10 Atherosclerotic heart disease of native coronary artery without angina pectoris; E78.00 Pure hypercholesterolemia, unspecified; E11.9 Type 2 diabetes mellitus without complications
CPT/HCPCS: 93005; 99285; 96374; 36415; 82553; 82550; 83735; 85025; 80053; 84484; 71045; 93010; J2405